=== PATIENT | female | born 1945 | race Caucasian/White ===

== ENCOUNTER 2020-09-13 16:17 | Observation (INO) | payer MEDICARE, OTHER ==
[~2020-09-13] VITALS: Ht 172.7 cm; Wt 74.3 kg
[~2020-09-13 16:17] MED LIST: ALDACTONE25 MG PO; AMLODIPINE BESYL5 MG PO; ASPIRIN CHEWABL81 MG PO; ATIVAN0.5 MG PO; ATIVAN1 MG PO; ATORVASTATIN CA20 MG PO; CATAPRES 0.1MG0.1 MG PO; CLONIDINE1 EAC1 TD; DILTIAZEM 12HR120 MG PO; ELIQUIS 5 MG TAB5 MG PO; ELIQUIS5 MG PO; FARXIGA5 MG PO; FERROUS SULFAT325 M2 PO; FISH OIL 1,0001 EAC5 PO; GLUCOPHAGE1000 MG PO; HYDRALAZINE HCL10 MG PO; HYDROCHLOROTHIA25 MG PO; HYGROTON TAB 2525 MG PO; IRON325 M1 PO; LASIX20 MG PO; LEVOXYL25 MCG PO; LIPITOR TAB 2020 MG PO; MAGNESIUM400 M2 PO; NIFEDIPINE ER60 M1 PO; NORVASC10 MG PO; OMNICEF 300 MG300 MG PO; PEPCID20 MG PO; PLAVIX 75 MG TA75 MG PO; TOPROL XL50 MG PO; TRANDATE 100 M100 MG PO; ZESTRIL40 MG PO
[2020-09-13 17:29] LABS: HEMOGLOBIN 12.7 gm/dl (12.3-15.3); RED BLOOD COUNT 3.99 M/UL (4.00-5.10); WHITE BLOOD COUNT 6.9 K/UL (4.5-11.0)
[2020-09-13] MEDS ORDERED: HYDRALAZINE HCL50 MG PO (20:12)
[2020-09-14 07:22] LABS: BUN/CREATININE RATIO 14 (0-10)
[2020-09-14 07:27] LABS: WHITE BLOOD COUNT 6.4 K/UL (4.5-11.0)
[2020-09-14 07:34] LABS: HEMOGLOBIN 10.2 gm/dl (12.3-15.3); RED BLOOD COUNT 3.26 M/UL (4.00-5.10)
[2020-09-14] MEDS ORDERED: IMDUR ER TAB 3030 MG PO (10:14)
[2020-09-14] MEDS ORDERED: NITROGLYCERIN0.4 MG SL (10:14)
== END 2020-09-14 12:46 | disposition home or self-care (01) ==
LOC: ER1 16:17 → CDU 18:20 → M/S 18:20
PROVIDERS: Emergency Medicine; Internal Medicine; ADMIT Internal Medicine Infectious Disease
DX: I25.119 Atherosclerotic heart disease of native coronary artery with unspecified angina pectoris (principal); I12.9 Hypertensive chronic kidney disease with stage 1 through stage 4 chronic kidney disease, or unspecified chronic kidney disease; E11.22 Type 2 diabetes mellitus with diabetic chronic kidney disease; N18.9 Chronic kidney disease, unspecified; I48.0 Paroxysmal atrial fibrillation; D50.9 Iron deficiency anemia, unspecified; E78.5 Hyperlipidemia, unspecified; E03.9 Hypothyroidism, unspecified; E11.65 Type 2 diabetes mellitus with hyperglycemia; E87.1 Hypo-osmolality and hyponatremia; F41.9 Anxiety disorder, unspecified; Z86.73 Personal history of transient ischemic attack (TIA), and cerebral infarction without residual deficits; Z20.828 Contact with and (suspected) exposure to other viral communicable diseases; Z95.1 Presence of aortocoronary bypass graft; Z87.891 Personal history of nicotine dependence; Z79.82 Long term (current) use of aspirin; Z79.84 Long term (current) use of oral hypoglycemic drugs; Z79.01 Long term (current) use of anticoagulants; Z79.899 Other long term (current) drug therapy
CPT/HCPCS: ECHO; 71045; 80048; 80053; 82550; 82553; 82962; 83690; 83735; 83874; 83880; 84100; 84484; 85025; 85379; 85610; 85730; 93005; 93306; 96372; 96374; 99285; G0378; J7030; U0002